=== PATIENT | female | born 1955 | race Hispanic/Latino ===

== ENCOUNTER → 2018-10-13 | Day surgery (SDC) | payer BC ==
[2018-10-08 13:37] LABS: ANION GAP 17.2 mmol/L (8-16); BLOOD UREA NITROGEN 13 mg/dL (7-26); BUN/CREATININE RATIO 15 (6-25); CALCIUM 10.2 mg/dL (8.4-10.2); CARBON DIOXIDE 25 mmol/L (22-29); CHLORIDE 97 mmol/L (98-107); CREATININE, SERUM 0.85 mg/dL (0.57-1.11); EST GLOMERULAR FILTRATION RATE > 60 ML/MIN (60-); GLUCOSE 300 mg/dL (74-118); POTASSIUM 4.2 mmol/L (3.5-5.1); SODIUM 135 mmol/L (136-145)
[~2018-10-13] MED LIST: ANASTROZOLE1 MG PO; ATENOLOL50 MG PO; CEFAZOLIN SOD 1 GM/D5W 50ML 50 ML IV ONE; FENTANYL CITRATE/PF 100MCG/2 ML INJ ONE; INSULIN REGULAR, HUMAN 100 UNIT/1 ML 3ML VIAL ONE; LIDOCAINE HCL 2% LOCAL INJ 5 ML SDV VIAL INJ ONE; MELOXICAM15 MG PO; MELOXICAM7.5 MG PO; METFORMIN HCL500 MG PO; MIDAZOLAM HCL 2 MG/2 ML VIAL ONE; ONDANSETRON HCL INJ 2 MG/ML VIAL ONE; OTEZLA PO; PRAVASTATIN SOD10 MG PO; PREDNISONE5 MG PO; PROPOFOL IV EMULSION 10 MG/ML 20 ML VIAL ONE; SEVOFLURANE INHAL SOLN 250 ML PEN BTL ONE; [UNRECOGNIZED DRUG - REMARK] PO
[2018-10-13 13:25] VITALS: BP 145/85
--- NOTE | 2018-10-13 14:05 | Operative Report ---
DATE OF PROCEDURE: October 13, 2018 ACCESS SPEC: Giovanni Juárez PA-C The patient was brought to the operating room for induction of anesthesia. Throughout this case, my PA's assistance was necessary for retraction of soft tissue and positioning of the extremity. This allows for efficient and technically successful execution of the operation and is considered medically necessary. PREOPERATIVE DIAGNOSIS: Stenosing tenosynovitis, right 3rd finger. POSTOPERATIVE DIAGNOSIS: Stenosing tenosynovitis, right 3rd finger. PROCEDURE: Release of right 3rd trigger finger. INDICATIONS: The patient is a 62-year-old lady who has right 3rd trigger finger. She has failed conservative management and would like to proceed with definitive intervention. The risks and benefits of surgical release have been explained. She states she understands and wishes to proceed. DESCRIPTION OF PROCEDURE: The patient was brought to the operating room and placed under general anesthetic. She received prophylactic antibiotics in the holding area. Her right upper extremity was prepped and draped in a sterile manner. A preoperative time out was performed. The extremity was exsanguinated and a proximal tourniquet was inflated to 350 mmHg. An incision was made in line with the distal palmar crease of the right hand at the 3rd digit. The A1 leanna was carefully exposed. Care was taken to avoid any injury to neurovascular structures. A 15 blade surgical knife was used to release the leanna. There was a moderate amount of fluid in the tendon sheath. The release was completed with a pair of tenotomy scissors. The tendons were reflected from the wound and noted to have no further stenosing tenosynovitis. The wound was closed with 3 interrupted nylon stitches. Four mL of 0.5% Marcaine without epinephrine were injected around the incision. A sterile bandage was applied. There was no blood loss. All needle and sponge counts were correct. Job#: [id number]
== END | disposition home or self-care (01) ==
LOC: OR 10:13
PROVIDERS: ATTEND Specialist
DX: M65.331 Trigger finger, right middle finger (principal); M05.841 Other rheumatoid arthritis with rheumatoid factor of right hand; I10 Essential (primary) hypertension; E11.9 Type 2 diabetes mellitus without complications; K21.9 Gastro-esophageal reflux disease without esophagitis; Z01.810 Encounter for preprocedural cardiovascular examination; Z01.812 Encounter for preprocedural laboratory examination; Z79.84 Long term (current) use of oral hypoglycemic drugs
CPT/HCPCS: 26055; 36415 ×2; 80048; 82948; 93005; J0690; J2001; J2250; J2405; J2704

== ENCOUNTER → 2025-04-20 | Outpatient (REF) | payer MEDICARE ==
[~2025-04-20] MED LIST changes: -CEFAZOLIN SOD 1 GM/D5W 50ML 50 ML IV ONE; -FENTANYL CITRATE/PF 100MCG/2 ML INJ ONE; -INSULIN REGULAR, HUMAN 100 UNIT/1 ML 3ML VIAL ONE; +IOPAMIDOL 370 MG/ML 100 ML INFUS..BTL INJ ONE; -LIDOCAINE HCL 2% LOCAL INJ 5 ML SDV VIAL INJ ONE; -MIDAZOLAM HCL 2 MG/2 ML VIAL ONE; -ONDANSETRON HCL INJ 2 MG/ML VIAL ONE; -PROPOFOL IV EMULSION 10 MG/ML 20 ML VIAL ONE; -SEVOFLURANE INHAL SOLN 250 ML PEN BTL ONE; +SODIUM CHLORIDE 0.9% 500ML 500 ML ONE
[2025-04-20 11:13] LABS: CREATININE, SERUM 1.5 mg/dL (0.57-1.11)
== END ==
LOC: EDSTATUS 10:00 → CT 10:04
PROVIDERS: ATTEND Otolaryngology
DX: K11.8 Other diseases of salivary glands (principal)
CPT/HCPCS: 36415; 70491; 82565; 84520; 96360; J7040; Q9967